=== PATIENT | female | born 1990 | race Caucasian/White ===

== ENCOUNTER 2018-05-13 19:32 | Emergency (ER) | END 2018-05-13 21:15 | disposition home or self-care (01) ==

== ENCOUNTER 2019-03-01 08:53 | Emergency (ER) | payer BC, OTHER ==
[~2019-03-01] VITALS: Ht 167.6 cm; Wt 67.0 kg
[2019-03-01 08:56] VITALS: Ht 167.6 cm; Wt 67.0 kg
--- NOTE | 2019-03-01 09:15 | ERD ---
ER Documentation Chief Complaint Chief Complaint vaginal bleeding 10 weeks HPI This is a 28-year-old female patient who presents to the emergency room with complaint of mild cramping approximately 1 hour RN DELIVERY, noticed red blood on toilet paper after urination. Patient states this is the first episode of this type in her 10-week . Patient is concerned as she had miscarriage 3 years ago at 8 weeks gestation. Patient denies fever, no back pain, no nausea or vomiting. 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 No other chronic medical problems. G2A1 OB: [facility], Dr. Nya Nguyễn ROS All systems reviewed and are negative except as per history of present illness. Allergies Allergies: Coded Allergies: No Known Drug Allergies (Verified Allergy, Unknown, 05/13/18) PMhx/Soc Medical and Surgical Hx: pt denies Medical Hx, pt denies Surgical Hx Hx Alcohol Use: No Hx Substance Use: No Hx Tobacco Use: No Smoking Status: Never smoker FmHx Family History: No diabetes, No coronary disease, No other Physical Exam Vitals Vital Signs Date Temp Pulse Resp B/P (MAP) Pulse Ox O2 O2 Flow FiO2 Time Delivery Rate 03/01/19 98.6 76 18 111/64 100 08:56 (80) Physical Exam Const: No acute distress Head: Atraumatic Eyes: Normal Conjunctiva ENT: Normal External Ears, Nose and Mouth. Neck: Full range of motion. No meningismus. No lymphadenopathy Resp: Clear to auscultation bilaterally Cardio: Regular rate and rhythm, no murmurs Abd: Soft, non tender, non distended. Normal bowel sounds Skin: No petechiae or rashes Back: No midline or flank tenderness, no CVT Ext: No cyanosis, or edema Neur: Awake and alert, clear speech, steady gait Psych: Normal Mood and Affect Result Diagram: 03/01/19 0917 Results 24 hrs Laboratory Tests Test 03/01/19 09:16 03/01/19 09:17 Urine Color YELLOW Urine Clarity CLEAR Urine pH 5.0 Urine Specific [place] 1.011 Urine Ketones NEGATIVE mg/dL Urine Nitrite NEGATIVE mg/dL Urine Bilirubin NEGATIVE mg/dL Urine Urobilinogen NEGATIVE mg/dL Urine Leukocyte Esterase NEGATIVE Abby/ul Urine Hemoglobin NEGATIVE mg/dL Urine Glucose NEGATIVE mg/dL Urine Total Protein NEGATIVE mg/dl White Blood Count 8.5 10^3/ul Red Blood Count 4.31 10^6/ul Hemoglobin 11.9 g/dl Hematocrit 36.0 % Mean Corpuscular Volume 83.5 fl Mean Corpuscular Hemoglobin 27.6 pg Mean Corpuscular Hemoglobin Concent 33.1 g/dl Red Cell Distribution Width 13.1 % Platelet Count 242 10^3/UL Mean Platelet Volume 10.5 fl Immature Granulocytes % 0.600 % Neutrophils % 71.2 % Lymphocytes % 16.6 % Monocytes % 8.1 % Eosinophils % 3.0 % Basophils % 0.5 % Nucleated Red Blood Cells % 0.0 /100WBC Immature Granulocytes # 0.050 10^3/ul Neutrophils # 6.1 10^3/ul Lymphocytes # 1.4 10^3/ul Monocytes # 0.7 10^3/ul Eosinophils # 0.3 10^3/ul Basophils # 0.0 10^3/ul Nucleated Red Blood Cells # 0.0 10^3/ul Beta HCG, Quantitative 19683.0 mIU/ml Procedures/MDM PROCEDURES/MDM DIAGNOSTIC IMAGING: Read by radiologist. US OB IMPRESSION: Single live intrauterine with an estimated gestational age of 10 weeks 2 days, corresponding to an estimated date of delivery of September 25, 2019. Continued follow-up to assess for normal development is recommended. Small subchorionic hemorrhage. Close continued follow-up to assess stability is recommended. Left ovary not well visualized. If characterization of this structure is needed repeat exam is recommended. Please note that Doppler images of right ovarian vascularity were not obtained on the current study. If there is concern for a vascular abnormality of the right ovary, repeat exam with Doppler imaging of the right ovary is recommended. PROCEDURES: none LAB INTERPRETATION: No leukocytosis, mild anemia, H CG 72,243, A- Urine negative nitrites negative leukocyte esterase -Medications: None. Patient tolerated medication well with no adverse reactions. Patient reported improvement in pain. -Consultation: Dr. Contreras Patient's OB, Dr. Nguyễn was contacted, appointment made for patient today at 2:50 MDM: Patient remained stable throughout the ER course. Patient presents with vaginal bleeding starting this morning. Differential includes early normal , ectopic , failed . She will discharged home with appointment to see her production officer this afternoon. Request made from OB to have results faxed over, verbal consent given from patient to authorize and release medical records to OB office. Patient has been instructed to go to her local ER with fevers, hemorrhaging, new worsening symptoms. Current signs or symptoms do not suggest appendicitis, acute surgical abdomen, additional concerning signs or symptoms or conditions. The patient was stable with no new complaints during the ER course. Clinically, there is no current evidence to suggest meningitis, sepsis, acute abdomen, pneumonia, stroke, acute coronary syndrome, pulmonary embolism, aortic dissection or any other emergent condition appearing to require further evaluation or hospitalization. Patient counseled regarding my diagnostic impression and care plan. Prior to discharge all questions answered. Pt agrees with treatment plan and understands strict return precautions. DISPOSITION and PLAN: RX: None The patient has been discharge home to follow-up with community physician. Departure Diagnosis: Primary Impression: Threatened Additional Impression: Vaginal bleeding in patient at less than 20 weeks gestation Condition: Stable GEOFF ELLIOTT NP Mar 01, 2019 09:15
[2019-03-01 11:47] VITALS: BP 100/56; PULSE 63; RESP 18
== END 2019-03-01 11:48 | disposition home or self-care (01) ==
LOC: FTE 08:53
DX: O20.0 Threatened abortion (principal); Z3A.10 10 weeks gestation of pregnancy
CPT/HCPCS: 36415; 76801; 81003; 84702; 85025; 86900; 86901; 99284; J2790